=== PATIENT | female | born 1975 | race Caucasian/White ===

== ENCOUNTER → 2017-01-29 | Outpatient (CLI) | payer OTHER | LOC: CIMAGING 08:49 | PROVIDERS: ATTEND Obstetrics & Gynecology | DX: Z12.31 Encounter for screening mammogram for malignant neoplasm of breast (principal) | CPT/HCPCS: G0202 ==

== ENCOUNTER → 2017-02-15 | Outpatient (CLI) | payer OTHER | LOC: CIMAGING 13:30 | PROVIDERS: ATTEND Obstetrics & Gynecology | DX: N60.02 Solitary cyst of left breast (principal) | CPT/HCPCS: 76641-PO; G0206 ==

== ENCOUNTER → 2018-02-02 | Outpatient (CLI) | payer OTHER | DX: Z12.31 Encounter for screening mammogram for malignant neoplasm of breast (principal); Z80.3 Family history of malignant neoplasm of breast ==